=== PATIENT | male | born 1960 | race Two or more races ===

== ENCOUNTER 2021-04-21 00:53 | Emergency (ER) | payer OTHER ==
[~2021-04-21] VITALS: Ht 165.1 cm; Wt 81.6 kg
[2021-04-21] MEDS ORDERED: GLIMEPIRIDE4 MG (01:02)
[2021-04-21] MEDS ORDERED: TAMS0.4C (01:02)
[2021-04-21] MEDS ORDERED: COZAAR100 MG (01:03)
[2021-04-21] MEDS ORDERED: NORVASC10 MG (01:03)
== END 2021-04-21 13:43 | disposition home or self-care (01) ==
LOC: ER 00:53
DX: N20.1 Calculus of ureter (principal); Z91.013 Allergy to seafood

== ENCOUNTER 2021-04-24 04:35 | Emergency (ER) | payer OTHER ==
[~2021-04-24] VITALS: Ht 165.1 cm; Wt 81.6 kg
[~2021-04-24 04:35] MED LIST: COZAAR100 MG; GLIMEPIRIDE4 MG; NORVASC10 MG; TAMS0.4C
== END 2021-04-24 11:07 | disposition home or self-care (01) ==
LOC: ER 04:35
DX: N23 Unspecified renal colic (principal); K29.70 Gastritis, unspecified, without bleeding; R10.9 Unspecified abdominal pain; Z91.013 Allergy to seafood

== ENCOUNTER 2021-07-04 12:04 | Emergency (ER) | payer OTHER ==
[~2021-07-04] VITALS: Ht 165.1 cm; Wt 81.6 kg
[2021-07-04] MEDS ORDERED: MONTELUKAST SODI1 GM (12:19)
[2021-07-04] MEDS ORDERED: LIPITOR20 MG (12:19)
== END 2021-07-04 15:33 | disposition home or self-care (01) ==
LOC: ER 12:04
DX: S81.021A Laceration with foreign body, right knee, initial encounter (principal); W45.8XXA Other foreign body or object entering through skin, initial encounter; Y93.9 Activity, unspecified; Y92.018 Other place in single-family (private) house as the place of occurrence of the external cause; Y99.9 Unspecified external cause status; I10 Essential (primary) hypertension; Z91.013 Allergy to seafood

== ENCOUNTER 2021-10-12 01:28 | Emergency (ER) | payer OTHER ==
[~2021-10-12] VITALS: Ht 162.6 cm; Wt 77.1 kg
[~2021-10-12 01:28] MED LIST changes: +LIPITOR20 MG; +MONTELUKAST SODI1 GM
[2021-10-12] MEDS ORDERED: PERCOCET 5-3251 EACH PO (06:49)
[2021-10-12] MEDS ORDERED: CEPHALEXIN500 MG PO (06:52)
== END 2021-10-12 06:56 ==
LOC: ER 01:28
DX: N20.1 Calculus of ureter (principal); N28.1 Cyst of kidney, acquired; Z91.013 Allergy to seafood; E11.9 Type 2 diabetes mellitus without complications; I10 Essential (primary) hypertension

== ENCOUNTER → 2021-10-31 | Emergency (ER) | payer OTHER ==
[~2021-10-31] VITALS: Ht 170.2 cm; Wt 74.8 kg
[~2021-10-31] MED LIST changes: +CEPHALEXIN500 MG PO; +PERCOCET 5-3251 EACH PO
== END | disposition left against medical advice (07) ==
LOC: ER 06:40
DX: N20.2 Calculus of kidney with calculus of ureter (principal); E11.9 Type 2 diabetes mellitus without complications; Z79.84 Long term (current) use of oral hypoglycemic drugs; I10 Essential (primary) hypertension; Z20.822 Contact with and (suspected) exposure to COVID-19; Z91.013 Allergy to seafood